=== PATIENT | female | born 1965 | race Caucasian/White ===

== ENCOUNTER 2019-10-13 09:58 | Inpatient (IN) ==
--- NOTE | 2019-09-12 15:48 | PAT Medication Instructions ---
Medication Instructions Date of Service September 12, 2019 Home Medications cyanocobalamin (vitamin B-12) [Vitamin B-12] 1,000 mcg PO DAILY fluticasone propion-salmeterol [Advair Diskus] 1 inh INHALATION Q12H hydrocodone-acetaminophen 1 tab PO Q6H PRN lisinopril 20 mg PO QAM melatonin 5 mg PO HS multivitamin 1 tab PO DAILY semaglutide [Ozempic] 1 mg SUBCUT WK simvastatin 20 mg PO HS warfarin 0.5 mg PO QPM warfarin 4 mg PO QPM Continue as directed semaglutide [Ozempic] 1 mg SUBCUT WK ASK your prescriber and surgeon warfarin 0.5 mg PO QPM warfarin 4 mg PO QPM DO NOT take the morning of surgery cyanocobalamin (vitamin B-12) [Vitamin B-12] 1,000 mcg PO DAILY lisinopril 20 mg PO QAM multivitamin 1 tab PO DAILY Take morning of surgery With a small sip of water, OTHERWISE NOTHING TO EAT OR DRINK AFTER MIDNIGHT: fluticasone propion-salmeterol [Advair Diskus] 1 inh INHALATION Q12H hydrocodone-acetaminophen 1 tab PO Q6H PRN (okay to take up to 4 hours prior to surgery if needed) Take evening before surgery fluticasone propion-salmeterol [Advair Diskus] 1 inh INHALATION Q12H hydrocodone-acetaminophen 1 tab PO Q6H PRN (if needed) melatonin 5 mg PO HS simvastatin 20 mg PO HS Other Notes If you have any questions please call us at [phone] or [phone] or [phone] or [phone]
--- NOTE | 2019-09-13 12:29 | Anesthesiology Consultation ---
Date of Service September 13, 2019 Assessment & Plan (1) Encounter for pre-operative examination: - Check coags AM DOS Chart Review Chart Review: Acceptable Risk for Surgery, Pending: Refer to Additional Notes / Consult section (pending preop testing (labs, EKG, CXR)) and Patient seen in Pre Admission Testing Consults Requested none Teaching & Discussion Pre-Anesthesia Teaching/Discussion Notes: Instructed NPO after midnight before surgery,except medications with 15 cc of water. Medication instructions provided according to the PAT guidelines. History Surgery Operation Date: 10/13/19 08:50 Proposed Procedures p Left Reverse Total Shoulder Arthroplasty - Jak Wilkins, Height/Weight Height: 5 ft 3.5 in Weight: 132.3 kg Allergies Allergy/AdvReac Type Severity Reaction Status Date / Time No Known Allergies Allergy Verified 09/11/19 10:18 Medications Home Medications Medication Instructions Recorded Confirmed Last Taken cyanocobalamin (vitamin B-12) 1,000 mcg PO DAILY 09/11/19 09/11/19 Unknown [Vitamin B-12] fluticasone propion-salmeterol 1 inh INHALATION Q12H 09/11/19 09/11/19 Unknown [Advair Diskus] hydrocodone-acetaminophen 1 tab PO Q6H PRN 09/11/19 09/11/19 Unknown lisinopril 20 mg PO QAM 09/11/19 09/11/19 Unknown melatonin 5 mg PO HS 09/11/19 09/11/19 Unknown multivitamin 1 tab PO DAILY 09/11/19 09/11/19 Unknown semaglutide [Ozempic] 1 mg SUBCUT WK 09/11/19 09/11/19 Unknown simvastatin 20 mg PO HS 09/11/19 09/11/19 Unknown warfarin 0.5 mg PO QPM 09/11/19 09/11/19 Unknown warfarin 4 mg PO QPM 09/11/19 09/11/19 Unknown Past Medical History Medical History Asthma stable Diabetes mellitus, type 2 + injectable Hyperlipidemia Hypertension Migraine hx Morbid obesity Osteoarthritis Pulmonary embolism 10+ years ago- on warfarin Seasonal depression Sleep apnea no device Exercise / Class Metabolic Activity III < 4 Walking/Shop/Light housework Past Family History Family History Mother Family hx of colon cancer Past Surgical History Surgical History History of bilateral tubal ligation History of cardiac cath 10+ YEARS AGO= NO STENTS History of section History of cholecystectomy History of colonoscopy History of dilatation and curettage Uterine Thermal Ablation History of total knee replacement RIGHT Past Anesthesia History No Family Hx of Anesthesia Complications Remote hx of significant post-op pain/gas/discomfort x 1 episode. No issues with other surgeries/anesthesia. History of PONV History of PONV Social History Smoking Status: Never smoker Do You Dip or Chew Tobacco: No Hx Alcohol Use: Yes Alcohol type: wine alcohol intake frequency: holidays/special occasions only Hx Substance Use: No substance use type: does not use Review of Systems Patient denies chest pain, shortness of breath, reflux, cough, wheezing, palpitations. Physical Exam Vital Signs VITALS BP 103/72 (per patient, BP typically in lower-normal range) P 69 TEMP 98.1 SP02 96%RA RESP 18 PHYSICAL Full neck and c-spine range of motion. Full TMJ range of motion. TMD 4 finger breaths Mallampati Score 3 Dentition: missing molars, crowns on upper front Lungs: clear throughout to auscultation Cardiac: regular rate and rhythm, no murmurs noted Spine: normal Carotid arteries: negative bruit Extremities: no pitting edema Testing Laboratory Results 09/13/19 13:00 09/13/19 13:00 PT 19.7 Seconds (9.0-12.0) H 09/13/19 13:00 INR 2.0 (0.9-1.1) H 09/13/19 13:00 APTT 38.7 Seconds (21.0-31.0) H 09/13/19 13:00 Hemoglobin A1c 5.5 % (4.5-5.6) 09/13/19 13:00 Blood Type A Positive 09/13/19 13:00 Antibody Screen NEGATIVE 09/13/19 13:00 Electrocardiogram Date: 09/13/19 Findings: + NSR @ (68/min) Chest X-Ray Date: 09/13/19 Findings: + NAD, + atelectasis, + cardiomegaly (mild) and + R hemidiaphragm elevation (mild)
--- NOTE | 2019-09-13 13:26 | XRay Report ---
XR chest Pre-admission PA/Lat HISTORY: 54 years-old Female pat preoperative exam. No acute chest complaints COMPARISON: None available TECHNIQUE: PA and lateral views of the chest FINDINGS: Limited lateral view secondary to positioning of the upper extremities. Cardiac silhouette is enlarge d. Mild right hemidiaphragmatic elevation. Subsegmental bibasilar opacities suggest atelectasis. Ther e is no pneumothorax, large pleural effusion or overt pulmonary edema. Surgical clips project over th e upper abdomen. Degenerative changes of the shoulders and spine. 1.7 cm radiodensity inferior to the coracoid process suggests loose body within the subscapularis recess. IMPRESSION: 1. Cardiomegaly without acute process. 2. Right hemidiaphragmatic elevation. 3. Bibasilar opacities suggest atelectasis. The above report was generated using voice recognition software. It may contain grammatical, syntax o r spelling errors. Electronically signed by: Sanya Bonilla M.D. 09/13/2019 1:25 PM
[2019-09-13 14:49] LABS: Basophils # (auto) 0.03 K/uL (0-0.2); Basophils % (auto) 0.5 %; Eosinophils # (auto) 0.15 K/uL (0-0.5); Eosinophils % (auto) 2.5 %; Hematocrit (blood only) 41.5 % (37-47); Hemoglobin 13.3 g/dL (12.0-16.0); Lymphocytes # (auto) 2.65 K/uL (1.2-3.4); Lymphocytes % (auto) 43.8 %; Mean Corpuscular Volume 93.5 fL (80-100); Monocytes # (auto) 0.26 K/uL (0.11-0.59); Monocytes % (auto) 4.3 %; Neutrophils # (auto) 2.96 K/uL (1.4-6.5); Neutrophils % (auto) 48.9 %; Platelet Count 312 K/uL (130-400); RDW Coefficient of Variation 13.9 % (11.5-14.5); RDW Standard Deviation 47.5 fL (36.4-46.3); Red Blood Count 4.44 M/uL (4.2-5.4); White Blood Count 6.05 K/uL (4.8-10.8)
[2019-09-13 14:58] LABS: BUN Creatinine Ratio 15.1 (10-20); Calcium 9.1 mg/dl (8.5-10.1); Creatinine Clr Calc Pharmacy 120.5 ml/min; Est GFR (African American) 112.3; Est GFR (Non-African American) 96.9
[2019-09-13 15:10] LABS: Partial Thromboplastin Ratio 1.4; Partial Thromboplastin Time 38.7 Seconds (21.0-31.0); Prothrombin Time 19.7 Seconds (9.0-12.0)
[2019-09-13 15:54] LABS: Estimated Average Glucose 111 mg/dl; Hemoglobin A1C 5.5 % (4.5-5.6)
--- NOTE | 2019-10-12 07:56 | History & Physical Report ---
Date of Service October 12, 2019 Assessment & Plan (1) Rotator cuff arthropathy of left shoulder: We will proceed with a left reverse shoulder arthroplasty. Postoperatively she will be started back on her Coumadin. She does have a history of a pulmonary embolism. She will be kept overnight in the hospital for postoperative medical management. She plans to be discharged to home with home health. Present on Admission?: Yes History of Present Illness Chief Complaint: Rotator cuff arthropathy of the left shoulder Primary Care Provider: NO PCP Sharon is a pleasant 54-year-old female who is been dealing with chronic increasing left shoulder pain. MRI and clinical examination were diagnostic for cuff arthropathy of the left shoulder. After failing conservative treatment, she has elected proceed with a left reverse shoulder arthroplasty. Allergies Allergy/AdvReac Type Severity Reaction Status Date / Time No Known Allergies Allergy Verified 09/11/19 10:18 Home Medications Home Medications Medication Instructions Recorded Confirmed Type cyanocobalamin (vitamin B-12) 1,000 mcg PO DAILY 09/11/19 09/11/19 History [Vitamin B-12] fluticasone propion-salmeterol 1 inh INHALATION Q12H 09/11/19 09/11/19 History [Advair Diskus] hydrocodone-acetaminophen 1 tab PO Q6H PRN 09/11/19 09/11/19 History lisinopril 20 mg PO QAM 09/11/19 09/11/19 History melatonin 5 mg PO HS 09/11/19 09/11/19 History multivitamin 1 tab PO DAILY 09/11/19 09/11/19 History semaglutide [Ozempic] 1 mg SUBCUT WK 09/11/19 09/11/19 History simvastatin 20 mg PO HS 09/11/19 09/11/19 History warfarin 0.5 mg PO QPM 09/11/19 09/11/19 History warfarin 4 mg PO QPM 09/11/19 09/11/19 History Past Med/Surg History Medical History Asthma stable Diabetes mellitus, type 2 + injectable Hyperlipidemia Hypertension Migraine hx Morbid obesity Osteoarthritis Pulmonary embolism 10+ years ago- on warfarin Seasonal depression Sleep apnea no device Surgical History History of bilateral tubal ligation History of cardiac cath 10+ YEARS AGO= NO STENTS History of section History of cholecystectomy History of colonoscopy History of dilatation and curettage Uterine Thermal Ablation History of total knee replacement RIGHT Family History Mother Family hx of colon cancer Social History Preferred Language: Citizen Of [place] Communication Ability: Effective Copy Chaser Required: No Beliefs That Will Affect Care: None Current Living Situation: Family Current Living Situation Comment: lives with Altagracia (dtr) Other Information That Helps Us Care for You: No Feels Safe at Home: Yes Safety Concerns: Feels Safe At This Time Smoking Status: Never smoker Do You Dip or Chew Tobacco: No ; Second Hand Exposure: Yes (hx) ; Tobacco Cessation Education Requested by Patient: No Hx Alcohol Use: Yes Alcohol type: wine Hx Substance Use: No Review of Systems All systems reviewed & are unremarkable except as noted in HPI & below Physical Exam Constitutional: WD/WN, vitals as above Eyes: PERRL, conjunctivae normal, anicteric sclerae ENMT: external ear and nose normal, oropharynx normal Neck: trachea midline, no thyromegaly Respiratory: normal respiratory effort Cardiovascular: RRR, no murmur, no edema Gastrointestinal (Abdomen): normal bowel sounds, soft, nontender, no hepatosplenomegaly Musculoskeletal: Physical examination of the left shoulder reveals decreased range of motion and significant weakness. There is tenderness palpation along the anterior glenohumeral joint line. The right upper extremity is neurovascularly intact. Psychiatric: A+Ox3, euthymic affect Results & Data Diagnostic Findings Radiographs of the left shoulder show some signs of osteoarthritis with blunting of the greater tuberosity and some superior migration of the humeral head on the glenoid.
[~2019-10-13 09:58] MED LIST: ACETAMINOPHEN 500 MG TAB PO SCH; BUPIVACAINE 0.5 % 5 MG/1 ML PF 10ML VIAL ONE; CEFAZOLIN 3000MG 72.5 ML IV SCH; FAMOTIDINE 20 MG TAB PO SCH; GABAPENTIN 600 MG DOSE PO SCH; LR 15ML/HR IV SCH; LR 60ML/HR IV SCH; ROPIVACAINE 0.5% HCL/PF 150 MG, BUPIVACAINE 0.5% MPF 30 ML, EPINEPHrine 30MG/30ML (OR U... INFIL SCH; TRANEXAMIC ACID 1,000 MG **IV Intra-op IV SCH; TRANEXAMIC ACID 1,000 MG **IV Pre-op IV SCH; dexAMETHasone 4 MG TAB PO SCH
--- NOTE | 2019-10-13 10:24 | History & Physical Bridge Note ---
Date of Service October 13, 2019 History & Physical Bridge Note I have examined the patient, reviewed the History & Physical and in the interval since the performance of the History & Physical I have noted the following changes of clinical significance: no changes noted
[2019-10-13] MEDS ORDERED: ROCURONIUM BROMIDE 10 MG/ML 5 ML VIAL ONE (11:01)
[2019-10-13] MEDS ORDERED: MIDAZOLAM HCL 1 MG/ML 2ML VIAL ONE (11:01)
[2019-10-13] MEDS ORDERED: PROPOFOL IV EMULSION 10 MG/ML 20 ML VIAL IV ONE (11:01)
[2019-10-13] MEDS ORDERED: LIDOCAINE HCL 2% 2 ML VIAL/AMP(20MG/ML) INFIL ONE (11:01)
[2019-10-13] MEDS ORDERED: fentaNYL citrate 100 MCG/2 ML VIAL ONE (11:01)
[2019-10-13 11:16] LABS: INR 1.1 (0.9-1.1); Partial Thromboplastin Ratio 1.1; Partial Thromboplastin Time 28.7 Seconds (21.0-31.0)
[2019-10-13] MEDS ORDERED: fentaNYL citrate 100 MCG/2 ML VIAL IV PRN (12:26)
[2019-10-13] MEDS ORDERED: ATROPINE SULFATE 0.1 MG/ML 10ML SYR IV PRN (12:26)
[2019-10-13] MEDS ORDERED: ePHEDrine sulfate 50 MG/ML AMP IV PRN (12:26)
[2019-10-13] MEDS ORDERED: ONDANSETRON INJ 2 MG/ML 2 ML VIAL IV PRN ×2 (12:26→16:10)
[2019-10-13] MEDS ORDERED: NEOSTIGMINE METHYLSULFATE 5 MG/5 ML SYR ONE (14:15)
[2019-10-13] MEDS ORDERED: GLYCOPYRROLATE 0.2 MG/ML VIAL ONE (14:15)
[2019-10-13] MEDS ORDERED: ONDANSETRON INJ 2 MG/ML 2 ML VIAL ONE (14:15)
--- NOTE | 2019-10-13 14:17 | Operative Report ---
PG Post Operative Report Pre & Post Diagnosis Operation Date: 10/13/19 11:10 Pre-Op Diagnosis: Left Shoulder Degenerative Joint Disease with large rotator cuff tear Post-Op Diagnosis: Left Shoulder Degenerative Joint Disease with large rotator cuff tear I identified the patient and participated in the time-out.: Yes Procedure Operation Date: 10/13/19 11:10 Actual Procedures p Left Reverse Total Shoulder Arthroplasty(Left) - Jak Wilkins DO Surgeon Jak Wilkins DO Infection Preventionist Jak Tate PAC Estimated Blood Loss 250 Findings Consistent with Post-Op Diagnosis Specimens Left humeral head Complications none Disposition Disposition: Recovery Room Indications Sharon is a pleasant 54-year-old female who is been dealing with chronic increasing left shoulder pain. MRI and clinical examination were diagnostic for advanced osteoarthritis with large rotator cuff tear. After failing conservative treatment, and after discussions about her age, she elected proceed with a left reverse shoulder arthroplasty. Description of Procedure Implants used: I used a [employer] Comprehensive reverse total shoulder arthroplasty system with a size 8 press fit mini humeral stem, a standard humeral tray and a +3 humeral bearing, a 25 mm mini baseplate with a 6.5 mm central screw and superior and inferior locking screws, and a size 36 mm eccentric glenosphere. The patient arrived at [facility] for the above procedure. There were seen in the preoperative holding area and the operative extremity was identified and signed. They were given a preoperative antibiotic and an interscalene nerve block. They were taken back to the operating room, laid on table in supine position, and put under general anesthesia. They were then put into the beachchair position. The shoulder was then prepped and draped in sterile fashion. A timeout was done and the patient and the operative extremity was properly identified. A deltopectoral approach was used. Dissection was taken down through the fascia and the deltoid was retracted laterally and the conjoined tendon was retracted medially. The anterior shoulder was exposed. The long head of the biceps tendon was tenodesed to the upper border of the pectoralis major. The subscapularis was then released off the lesser tuberosity with a centimeter of cuff tissue remaining. The inferior capsule was released and the humeral head was dislocated. A canal finding reamer was sent down the center of the humeral canal. Sequential reaming up to a size 8 reamer was done. Off that reamer, a proximal humeral resection guide was placed. The proximal humerus was resected at 135 of inclination and 25 of retroversion. Osteophytes were then removed and the glenoid was exposed. Time was spent doing a complete capsular and labral release. The glenoid guide was then placed in the inferior aspect of the glenoid. A 3.2 mm Steinmann pin was then placed into the glenoid vault at 10 of inclination. The glenoid baseplate was then reamed. The final size 25 mm mini baseplate was then impacted in the place. A 6.5 mm central screw was then placed followed by superior and inferior locking screws. A 36 mm eccentric glenoid sphere was then impacted into place. Surrounding soft tissues were then injected with 100 cc an orthopedic pain control cocktail. The proximal humerus was then exposed. Sequential broaching of the humerus up to a size 8 broach was done. Off that broach a +3 humeral tray was trialed. The shoulder was then reduced, brought through a full range of motion and felt to be stable. The shoulder was then dislocated and the broach was removed. The final size 8 mini press-fit humeral stem was then impacted into place. A +3 humeral bearing was then snapped onto a standard humeral tray and the ring-lock mechanism was engaged. The humeral tray was then impacted onto the humeral stem. The shoulder was once again reduced, brought through a full range of motion and felt to be stable. The subscapularis was then tenodesed back to the lesser tuberosity with transosseous FiberWire sutures and side to side sutures with the arm in 45 of external rotation. A dilute betadyne lavage was then done for 3 minutes. The joint was then irrigated with normal saline solution. Hemostasis was obtained. The skin was then closed with 2-0 Vicryl, 3-0V lock suture, and farhat. A soft dressing and a regular arm sling was placed. The patient was then extubated and transferred to a hospital bed. They were taken to the postanesthesia care unit in stable condition. They tolerated the procedure well. I attest to the content of the Intraoperative Record and any orders documented therein. Any exceptions are noted below.
[2019-10-13] MEDS ORDERED: ESMOLOL HCL INJ 10 MG/ML 10ML VIAL IV ONE (14:34)
--- NOTE | 2019-10-13 14:56 | Anesthesiology Progress Note ---
Date of Service October 13, 2019 Anesthesia Post Procedure Vital Signs Vital Signs: Temp Pulse Resp BP Pulse Ox 10/13/19 10:57 37.0 C 81 18 160/81 H 93 Transfer of Care Handoff Completed per policy Notes Mental Status: alert / awake / arousable Patient Amnestic to Procedure: Yes Nausea / Vomiting: adequately controlled Pain: adequately controlled Airway Patency, RR, SpO2: stable & adequate BP & HR: stable & adequate Hydration State: stable & adequate Anesthetic Complications: no major complications apparent Notes: block working well in pacu
--- NOTE | 2019-10-13 15:13 | XRay Report ---
XR shoulder LT min 2V routine CLINICAL HISTORY: Post shoulder surgery COMPARISON: None. DISCUSSION: Anatomic alignment posttotal left shoulder arthroplasty. Could contact between prosthetic and underlying bone. Expected postoperative soft tissue change. IMPRESSION: Anatomic alignment posttotal left shoulder arthroplasty. The above report was generated using voice recognition software. It may contain grammatical, syntax or spelling errors. Electronically signed by: Bennie Parikh M.D. 10/13/2019 3:12 PM
[2019-10-13] MEDS ORDERED: bisacodyL 10 MG SUPP PR PRN (16:10)
[2019-10-13] MEDS ORDERED: METOCLOPRAMIDE HCL INJ 5 MG/ML 2 ML VIAL IV PRN (16:10)
[2019-10-13] MEDS ORDERED: OXYCODONE HCL IR 5 MG TAB (IMMEDIATE RELEASE) PO PRN (16:10)
[2019-10-13] MEDS ORDERED: NON-FORMULARY MEDICATION (Semaglutide [Ozempic] 1 MG) SQ SCH (16:10)
[2019-10-13] MEDS ORDERED: HYDROmorphone INJ 0.5 MG/0.5 ML SYR IV PRN (16:10)
[2019-10-13] MEDS ORDERED: MAGNESIUM HYDROXIDE SUSP 30 ML UDC PO PRN (16:10)
[2019-10-13] MEDS ORDERED: NALOXONE HCL 0.4 MG/1 ML VIAL/CARP IV PRN (16:10)
[2019-10-13] MEDS ORDERED: PHARMACY GLYCEMIC MGMT CONSULT PRN (16:44)
[2019-10-13] MEDS ORDERED: DEXTROSE 50% 50 ML SYRINGE IV PRN (17:30)
[2019-10-13] MEDS ORDERED: GLUCOSE 10 TABS/TUBE PO PRN (17:30)
[2019-10-13] MEDS ORDERED: GLUCAGON FOR INJ 1 MG VIAL SQ PRN (17:30)
[2019-10-13] MEDS ORDERED: GLUCOSE 40% GEL 15 GM TUBE PO PRN (17:30)
[2019-10-13] MEDS ORDERED: LANTUS PER UNIT CHARGE SQ ONE (17:30)
[2019-10-13] MEDS ORDERED: CARBOHYDRATES FOR HYPOGLYCEMIA PO PRN (17:30)
--- NOTE | 2019-10-13 17:43 | Pharmacy Report ---
Glycemic Control Consultation - Date of Service October 13, 2019 - Scope Scope: Glycemic Pharmacist consulted by THERESA Hedrick on 10/13 for glycemic control and to write orders per [facility] inpatient glycemic control protocol - Objective Weight: 129.8 kg Accuchecks BSG (last 24hrs): 10/13/19 10/13/19 10:51 14:51 POC Glucose 91 120 H HbA1c: Hemoglobin A1c 5.5 % (4.5-5.6) 09/13/19 13:00 - Recent Pertinent Medications Outpatient Anti-diabetic Regimen: * Ozempic 1 mg SQ weekly * A1c = 5.5 % 09/13/19 The patient is currently receiving: * Last dose of weekly Ozempic on 10/10 Risk Factors for Insulin Resistance: * Steroids: Decadron 8 mg PO preop, will receive 10 mg IV on POD 1 * Recent Surgery: POD 0 s/p L shoulder arthroplasty * Diet: NPO -> T2DM - Assessment & Plan Assessment & Plan: ASSESSMENT: * 54 y/o female admitted s/p L shoulder arthroplasty. Excellent outpatient control based on recent A1c. * Pt is maintained on GLP-1 agonist as an outpatient, which is still on board since last dose was a few days ago * GLP-1 agonists are not recommended for inpatient use d/t drug interactions, changing PO intake, and difficulty titrating for acute hyper/hypoglycemia. * Will hold GLP-1 agent for admission and utilize SQ basal bolus insulin regimen which is the recommended regimen for inpatient glycemic control. * Will initiate weight based insulin dosing for insulin sonia patient and titrate based on BSG trends. * Since A1c and preop BSGs well controlled, will not be as aggressive with postop basal/bolus dosing in the setting of Decadron use PLAN FOR INPATIENT GLYCEMIC CONTROL: * Holding outpatient diabetes medications * Basal insulin * Lantus 16 units x 1 now (~0.2 units/kg adj body weight) * Bolus insulin * NovoLog per scale ACHS or Q6hrs while NPO * Goal Range: Low 110 mg/dL - High 140 mg/dL * Correction Factor: 30 mg/dL/unit * Nutritional / Prandial insulin per carb ratio of 1 unit per 9 grams CHO consumed Discharge Recommendations: * A1c is 5.5% on 09/13/19 * Goal A1c < 7% based on age/comorbidities * Recommend to resume Ozempic on discharge Thank you.
[2019-10-13] MEDS: INSULIN ASPART 100 UNITS/ML 3 ML PEN SC SCH ×2 (18:33→21:22)
[2019-10-13] MEDS: SODIUM CHLORIDE 0.9% 1000ML 1,000 ML IV SCH (18:37)
[2019-10-13] MEDS: FLUTICASONE/SALMETEROL 250/50 (ADVAIR) 14 PUFF/1 INHALER INH SCH (20:07)
[2019-10-13] MEDS: DOCUSATE SODIUM 100 MG CAP PO SCH (20:08)
[2019-10-13] MEDS: CEFAZOLIN 2000MG 2,000 MG/15 ML SYR IV SCH (20:11)
[2019-10-13] MEDS ORDERED: WARFARIN SOD 0.5 MG TAB PO SCH (21:00)
[2019-10-13] MEDS ORDERED: SIMVASTATIN 20 MG TAB PO SCH (21:00)
[2019-10-13] MEDS ORDERED: WARFARIN SOD 4 MG TAB PO SCH (21:00)
[2019-10-13] MEDS ORDERED: SENNA 8.6 MG TAB PO SCH (21:00)
[2019-10-13] MEDS: ACETAMINOPHEN 500 MG TAB PO SCH (21:20)
[2019-10-14] MEDS: CEFAZOLIN 2000MG 2,000 MG/15 ML SYR IV SCH (03:49)
[2019-10-14] MEDS: SODIUM CHLORIDE 0.9% 1000ML 1,000 ML IV SCH (03:50)
[2019-10-14] MEDS: ACETAMINOPHEN 500 MG TAB PO SCH ×2 (05:45→14:55)
[2019-10-14 06:14] LABS: Hematocrit (blood only) 36.1 % (37-47); Hemoglobin 11.7 g/dL (12.0-16.0); Immature Granulocytes # (auto) 0.05 K/uL (0.00-0.02); Immature Granulocytes % (auto) 0.4 %; Lymphocytes # (auto) 1.24 K/uL (1.2-3.4); Lymphocytes % (auto) 9.2 %; Mean Corpuscular Hemoglobin 29.8 pg (25-34); Mean Corpuscular Hgb Conc 32.4 g/dL (32-36); Mean Corpuscular Volume 91.9 fL (80-100); Mean Platelet Volume 10.8 fL (7.4-10.4); Monocytes # (auto) 0.37 K/uL (0.11-0.59); Monocytes % (auto) 2.7 %; Neutrophils # (auto) 11.81 K/uL (1.4-6.5); Neutrophils % (auto) 87.7 %; Platelet Count 268 K/uL (130-400); RDW Coefficient of Variation 13.8 % (11.5-14.5); Red Blood Count 3.93 M/uL (4.2-5.4); White Blood Count 13.47 K/uL (4.8-10.8)
[2019-10-14 06:40] LABS: BUN Creatinine Ratio 12.9 (10-20); Calcium 8.6 mg/dl (8.5-10.1); Creatinine Clr Calc Pharmacy 134.4 ml/min; Est GFR (African American) 116.8; Est GFR (Non-African American) 100.8; Potassium 4.1 mmol/L (3.5-5.1)
[2019-10-14 07:52] VITALS: TEMP 97.9
--- NOTE | 2019-10-14 07:56 | Orthopedic Progress Note ---
Date of Service October 14, 2019 Assessment & Plan (1) History of reverse total replacement of left shoulder joint: Overall she is doing very well. She not having much pain in the left shoulder. She will be seen by physical therapy this morning for ambulation and range of motion exercises. She can be discharged home later this morning. She is started back up on her Coumadin. She will go home with hydrocodone for pain. She will follow-up with orthopedics in 2 weeks. Present on Admission?: Yes Dirk Herrera was seen and examined at bedside this morning. Overall she is doing fairly well. She is not having much pain in the left shoulder. She was able to get some sleep last night. She has no complaints. Physical Exam Musculoskeletal: On physical examination of the left shoulder, the dressing is clean and dry. She is wearing her sling as instructed. She can flex her fingers but she cannot extend her fingers or her wrist yet. She cant extend her thumb. She still has some numbness in her fingers and the block is still working. Results & Data Vital Signs (Past 12 Hours) Vital Signs Temp Pulse Resp BP Pulse Ox 10/14/19 07:12 36.6 C 84 14 102/65 94 10/14/19 03:25 36.5 C 74 18 108/74 93 10/13/19 23:20 36.4 C L 90 18 120/82 91 PG Care Time/CCT Total # of Minutes Spent Total Time Spent with Patient: Total time spent is greater than 50% in coordination of care (as documented) at patient's floor/unit and/or counseling patient:
--- NOTE | 2019-10-14 07:58 | Discharge Summary ---
Date of Service October 14, 2019 Admission HPI Per Admitting Provider Sharon is a pleasant 54-year-old female who is been dealing with chronic increasing left shoulder pain. MRI and clinical examination were diagnostic for cuff arthropathy of the left shoulder. After failing conservative treatment, she has elected proceed with a left reverse shoulder arthroplasty. Principal Diagnosis Left reverse shoulder arthroplasty Discharge Data Allergies Allergy/AdvReac Type Severity Reaction Status Date / Time No Known Allergies Allergy Verified 10/13/19 10:49 Consultations 10/13/19 16:10 Consult Case Management - Discharge Planning Routine Procedures Performed Operation Date: 10/13/19 11:10 Actual Procedures p Left Reverse Total Shoulder Arthroplasty(Left) - Jak Wilkins DO Ordered Studies 10/13/19 05:00 US - OR guided needle placemen Routine Hospital Course (1) History of reverse total replacement of left shoulder joint: On October 13, [address] [facility] and underwent a left reverse shoulder arthroplasty without complication. She had a general anesthetic and a left interscalene nerve block. Postoperatively she was placed in a sling and discharged to general orthopedic floors. Her hospital course was uneventful. On postop day #1 her H&H was stable and her pain was well controlled. She was able to participate well with physical therapy doing ambulation and range of motion exercises. She was then discharged to home with outpatient physical therapy. She will follow-up with orthopedics in 2 weeks. Total Time Total Time Spent Total Time Spent (In Minutes): 20 Discharge Plan Discharge Items Reason For Visit: LEFT SHOULDER DEGENERATIVE JOINT DISEASE Medications and DC Order Prescriptions: No Action multivitamin Tablet 1 tab PO DAILY RF: 0 lisinopril 20 mg Tablet 20 mg PO QAM RF: 0 cyanocobalamin (vitamin B-12) [Vitamin B-12] 1,000 mcg Tablet 1,000 mcg PO DAILY RF: 0 hydrocodone-acetaminophen 10-325 mg Tablet 1 tab PO Q6H PRN (Reason: Pain) RF: 0 warfarin 4 mg Tablet 4 mg PO QPM RF: 0 simvastatin 20 mg Tablet 20 mg PO HS RF: 0 warfarin 1 mg Tablet 0.5 mg PO QPM RF: 0 melatonin 5 mg Capsule 5 mg PO HS RF: 0 Ozempic 0.25 mg or 0.5 mg(2 mg/1.5 mL) Pen Injector 1 mg subcut WK RF: 0 fluticasone propion-salmeterol [Advair Diskus] 250-50 mcg/dose Blister With Device 1 inh INHALATION Q12H RF: 0 Admission Data Admit Date/Time: 10/13/19 14:50 Attending Provider: Jak Wilkins Admit Provider: Jak Wilkins Primary Care Provider: PCP,MARIAN
[2019-10-14] MEDS ORDERED: dexAMETHasone 10 MG in SYRINGE 0 ML IV SCH (08:00)
[2019-10-14] MEDS: INSULIN ASPART 100 UNITS/ML 3 ML PEN SC SCH ×2 (08:32→13:08)
[2019-10-14] MEDS: FLUTICASONE/SALMETEROL 250/50 (ADVAIR) 14 PUFF/1 INHALER INH SCH (08:36)
[2019-10-14] MEDS: DOCUSATE SODIUM 100 MG CAP PO SCH (08:36)
[2019-10-14] MEDS ORDERED: lisinopriL 20 MG TAB PO SCH (09:00)
[2019-10-14] MEDS ORDERED: MULTIVITAMIN TAB PO SCH (09:00)
--- NOTE | 2019-10-14 10:11 | Anesthesiology Progress Note ---
Date of Service October 14, 2019 Anesthesia Post Procedure Vital Signs Vital Signs: Temp Pulse Pulse Resp BP Pulse Ox 10/14/19 10:00 36.6 C 78 84 14 102/65 94 10/14/19 07:12 36.6 C 84 14 102/65 94 10/14/19 03:25 36.5 C 74 18 108/74 93 10/13/19 23:20 36.4 C L 90 18 120/82 91 10/13/19 19:23 36.5 C 85 17 119/76 92 10/13/19 17:55 94 H 17 117/71 94 10/13/19 17:03 76 17 133/72 93 10/13/19 16:27 36.7 C 83 20 98/65 L 95 10/13/19 16:15 36.5 C 78 20 96/64 L 90 10/13/19 15:25 36.6 C 78 19 101/68 94 10/13/19 15:15 36.6 C 94 H 24 111/70 94 10/13/19 15:05 36.4 C L 95 H 26 H 117/82 94 10/13/19 14:55 36.4 C L 80 25 H 97/63 L 94 10/13/19 14:47 36.4 C L 86 16 90/72 L 98 10/13/19 10:57 37.0 C 81 18 160/81 H 93 Notes Mental Status: alert / awake / arousable Patient Amnestic to Procedure: Yes Nausea / Vomiting: adequately controlled Pain: adequately controlled Airway Patency, RR, SpO2: stable & adequate BP & HR: stable & adequate Hydration State: stable & adequate Anesthetic Complications: no major complications apparent and Pt Satisfied with anesthetic care
[2019-10-14 12:27] VITALS: BP 138/86; PULSE 85; O2SAT 96
== END 2019-10-14 15:45 | disposition home or self-care (01) | DRG 483 ==
LOC: ASU 09:58 → 3E 14:50
DX: I10 Essential (primary) hypertension; Z96.651 Presence of right artificial knee joint; Z79.84 Long term (current) use of oral hypoglycemic drugs; J45.909 Unspecified asthma, uncomplicated; Z68.42 Body mass index [BMI] 45.0-49.9, adult; Z79.01 Long term (current) use of anticoagulants; E78.5 Hyperlipidemia, unspecified; M75.102 Unspecified rotator cuff tear or rupture of left shoulder, not specified as traumatic; M12.812 Other specific arthropathies, not elsewhere classified, left shoulder; Z79.899 Other long term (current) drug therapy; G43.909 Migraine, unspecified, not intractable, without status migrainosus; Z79.51 Long term (current) use of inhaled steroids; E66.01 Morbid (severe) obesity due to excess calories; G47.30 Sleep apnea, unspecified; M19.012 Primary osteoarthritis, left shoulder; E11.9 Type 2 diabetes mellitus without complications; Z86.718 Personal history of other venous thrombosis and embolism